=== PATIENT | male | born 1990 | race Caucasian/White ===

== ENCOUNTER → 2017-10-18 | Outpatient (CLI) | payer OTHER | LOC: LAB 12:55 | PROVIDERS: ATTEND Otolaryngology | DX: J30.9 Allergic rhinitis, unspecified (principal) | CPT/HCPCS: 36415; 82785; 86003 ==

== ENCOUNTER 2018-04-25 06:39 | Day surgery (SDC) | payer OTHER ==
[~2018-04-25 06:39] MED LIST: CEFAZOLIN 2 GM/D5W RTU 2 GM/50 ML RTUPB IV PRN; CEFAZOLIN SODIUM 2 GM in DEXTROSE 5%-WATER 100 ML IV PRN
[2018-04-25] MEDS ORDERED: LIDOCAINE 2% INJ-PF (20 MG/ML) 10 ML AMPUL ONE (06:40)
[2018-04-25] MEDS ORDERED: ONDANSETRON HCL INJ/PF 4 MG/2 ML SDV ONE ×2 (06:40→08:46)
[2018-04-25] MEDS ORDERED: PROPOFOL INJ 200 MG/20 ML VIAL IV ONE (06:41)
[2018-04-25] MEDS ORDERED: DEXAMETHASONE SOD PHOS INJ 10 MG/1 ML VIAL ONE (06:41)
[2018-04-25] MEDS ORDERED: MIDAZOLAM 2 MG/2 ML INJ ONE (06:41)
[2018-04-25] MEDS ORDERED: FENTANYL CITRATE INJ/PF 100 MCG/2 ML AMPUL ONE ×2 (06:41→06:43)
[2018-04-25] MEDS ORDERED: SUCCINYLCHOLINE CHLORIDE INJ 200 MG/10 ML VIAL ONE ×2 (06:42→08:46)
[2018-04-25] MEDS ORDERED: ROCURONIUM BROMIDE INJ 50 MG/5 ML VIAL IV ONE (06:42)
[2018-04-25] MEDS ORDERED: DEXMEDETOMIDINE INJ 80 MCG/20 ML VIAL IV ONE (06:44)
[2018-04-25] MEDS ORDERED: HYDROMORPHONE HCL INJ/PF 2 MG/ML AMPULE ONE (06:44)
[2018-04-25] MEDS ORDERED: TOBRAMYCIN SULFATE/DEXAMETH OPH OINTMENT 3.5 GM ONE ×3 (07:02→09:47)
[2018-04-25] MEDS ORDERED: DIPHENHYDRAMINE HCL 50 MG/ML VIAL ONE (07:10)
[2018-04-25] MEDS: SCOPOLAMINE HYDROBROMIDE 1.5 MG PATCH.TD72 TD ONE ×2 (07:15→07:30)
[2018-04-25] MEDS ORDERED: MINERAL OIL (STERILE) 10 ML VIAL ONE ×2 (07:20→09:47)
[2018-04-25] MEDS ORDERED: BACITRACIN ZINC OINTMENT 15 GM ONE (07:20)
[2018-04-25] MEDS ORDERED: BUPIVACAINE HCL 0.5%/EPI 1:200000 INJ 1.8 ML CARTRIDGE ONE ×2 (07:21→09:47)
[2018-04-25] MEDS ORDERED: BALANCED SALT IRRIG SOLN COMB2 15 ML BOTTLE ONE ×2 (07:21→09:47)
[2018-04-25] MEDS ORDERED: OXYMETAZOLINE HCL 0.05% NASAL SPRAY 15 ML BOTTLE ONE ×2 (07:21→09:51)
[2018-04-25] MEDS ORDERED: BUPIVACAINE HCL 0.25% /EPINEPHRINE INJ/PF 30 ML SDV ONE (07:21)
[2018-04-25] MEDS ORDERED: BUPIVACAINE HCL 0.5%-EPI 1:200000 INJ/PF 30 ML VIAL ONE ×2 (07:22→11:08)
[2018-04-25] MEDS ORDERED: GLYCOPYRROLATE 1 MG/5 ML SYRINGE ONE (08:46)
[2018-04-25] MEDS ORDERED: DEXAMETHASONE SOD PHOSPHATE INJ 4 MG/1 ML VIAL ONE (08:46)
[2018-04-25] MEDS ORDERED: MORPHINE SULFATE 10 MG/ML INJ ONE (12:17)
[2018-04-25] MEDS ORDERED: CEFAZOLIN INJ 1 GM VIAL ONE (14:28)
[2018-04-25] MEDS ORDERED: DIPHENHYDRAMINE HCL 50 MG/ML VIAL IV PRN (16:42)
[2018-04-25] MEDS ORDERED: FENTANYL CITRATE INJ/PF 100 MCG/2 ML AMPUL IV PRN ×3 (16:42)
[2018-04-25] MEDS ORDERED: ONDANSETRON HCL INJ/PF 4 MG/2 ML SDV IV PRN ×2 (16:42→18:41)
[2018-04-25] MEDS ORDERED: MEPERIDINE HCL/PF INJ 25 MG/1 ML DISP.SYRIN IV PRN (16:42)
[2018-04-25] MEDS ORDERED: OXYCODONE-ACETAMINOPHEN 5-325 MG TABLET PO PRN ×2 (16:42)
[2018-04-25] MEDS ORDERED: PROMETHAZINE HCL INJ 25 MG/1 ML VIAL IV PRN ×2 (16:42)
[2018-04-25] MEDS ORDERED: HYDROCODONE/ACETAMINOPHEN 5-325 MG TABLET PO PRN (18:41)
[2018-04-25] MEDS ORDERED: HYDROCODONE/ACETAMINOPHEN 5-325 MG TABLET ONE (19:02)
[2018-04-25 20:21] VITALS: BP 134/68
--- NOTE | 2018-05-12 13:25 | OPERATIVE REPORT E ---
Operative Report NAME: PRASHANTH MAST : 1990 AGE: 27Y DATE OF SURGERY: 04/25/2018 ROOM: PREOPERATIVE DIAGNOSES: 1. Nasal deformities, acquired. 2. Nasal septal deviation, acquired. 3. History of repeat nasal trauma. 4. History of previous septoplasty and turbinate reduction. 5. Chronic nasal dyspnea. 6. Turbinate hypertrophy residual. PROCEDURES PERFORMED: 1. Revision septorhinoplasty with extensive cartilage and bony pyramid work and with nasal tip complex stabilization/support, and with use of an irradiated costal cartilage rib graft. 2. Bilateral inferior turbinate reduction using a submucous resection technique. SURGEON: FADIA SHEETS D.O. ANESTHESIA STAFF: REANNA ANESTHESIA: General endotracheal tube. ESTIMATED BLOOD LOSS: 100 mL. COMPLICATIONS: None. DRAINS: None. SPONGE COUNT: Verified. NEEDLE COUNT: Verified. MATERIALS FORWARDED SPECIMEN: None. FINDINGS: 1. Severe right nasal septal deviation with approximately 100% collapse of the left nasal passage, and there was extensive scar tissue in the region of the nasal septum/nasal septal cartilage. The remaining septal cartilage was also with multiple fractures noted. 2. The nose was lying in a slanted position to the left with left nasal dorsal fullness. 3. There was significant nasal valve collapse, right greater than left, with poor nasal tip complex support. 4. Right bony septal deviation of the perpendicular plate of ethmoid. 5. There was residual bilateral inferior turbinate fullness noted. INDICATIONS: This is a 27-year-old white male patient who was seen and evaluated in the [facility] office. The patient had been referred for, and he complained of, a longstanding history of nasal difficulty over the years. He reports having a history of recurrent nasal trauma as he has played soccer over the years as well as been involved with other activities resulting in nasal trauma. The patient underwent a 2015/2015 septoplasty and turbinate surgery at [facility] in [place] and noted no improvement but noted the nasal symptoms became worse and more difficult, and this also resulted in additional nasal deformities. The patient has desired to undergo corrective nasal surgery to improve bilateral nasal function. After an extensive discussion with the patient, recommendation and plan was for revision external septorhinoplasty using an irradiated costal cartilage rib graft, and residual turbinate reduction surgery would also be performed. The patient voiced an understanding of all that was discussed and was in agreement. The procedures and all of their risks and complications were all discussed in detail with the patient. He voiced an understanding of the described surgical plan, agreed to proceed, and consent was obtained. PROCEDURE: DICTATING PHYSICIAN: FADIA SHEETS D.O. [id number] PHY#: [id number] ID: [id number] JOB#: [id number] ACCT: [id number] cc:FADIA SHEETS D.O. >
== END 2018-04-25 20:10 | disposition home or self-care (01) ==
LOC: SC 06:39 → OROUT 20:10
PROVIDERS: ATTEND Otolaryngology
DX: M95.0 Acquired deformity of nose (principal); J34.2 Deviated nasal septum; J34.3 Hypertrophy of nasal turbinates; R06.09 Other forms of dyspnea; J30.9 Allergic rhinitis, unspecified
CPT/HCPCS: 30140; 30420; 21230; J2250; J3490 ×7; J0690 ×2; J1100; J2270; J0330; J2405; J2704; 160; J1170; J1200; J3010